=== PATIENT | male | born 1940 | race Caucasian/White ===

== ENCOUNTER → 2018-02-06 | Outpatient (CLI) | payer MEDICARE ==
[~2018-02-06] MED LIST: AMLO5 PO; ATOR40TA16 PO; CLOB0.059 TOPICAL; DESO0.0560 TOPICAL; ECASA81 PO; LABE100T2 PO; LATA0.002 EACH EYE; LOSA25TA PO; OXYC1CAP PO; VITA3000 PO; [UNRECOGNIZED DRUG - CODE] SL
[2018-02-06 12:31] LABS: AUTOMATED NEUTROPHIL # 4.9 TH/MM3 (1.8-7.7); BASOPHIL % 0.4 % (0.0-2.0); EOSINOPHIL # 0.5 TH/MM3 (0-0.4); EOSINOPHIL % 6.7 % (0.0-4.0); HEMATOCRIT 41.6 % (39.0-51.0); LYMPH % 16.2 % (9.0-44.0); LYMPHOCYTE # 1.2 TH/MM3 (1.0-4.8); MEAN CORPUSCULAR HEMOGLOBIN 31.3 PG (27.0-34.0); MEAN CORPUSCULAR HGB CONC 33.6 % (32.0-36.0); MEAN PLATELET VOLUME 9.6 FL (7.0-11.0); MONOCYTE # 0.9 TH/MM3 (0-0.9); NEUT % 64.7 % (16.0-70.0); PLATELET COUNT 228 TH/MM3 (150-450); RED BLOOD COUNT 4.47 MIL/MM3 (4.50-5.90); RED CELL DISTRIBUTION WIDTH 14.6 % (11.6-17.2); WHITE BLOOD COUNT 7.5 TH/MM3 (4.0-11.0)
--- NOTE | 2018-02-06 12:37 | RADRPT ---
EXAM DATE/TIME: 02/06/2018 12:11 [place] COMPARISON: No previous studies available for comparison. INDICATIONS : Evaluate for pneumonia, pneumothorax or communicable disease. Pre op left carotid. MEDICAL HISTORY : None. SURGICAL HISTORY : None. ENCOUNTER: Initial ACUITY: 1 day PAIN SCORE: 0/10 LOCATION: Bilateral chest FINDINGS: PA and lateral views of the chest demonstrate the lungs to be symmetrically aerated without evidence of mass, infiltrate or effusion. The cardiomediastinal contours are unremarkable. Osseous structure s are intact. CONCLUSION: 1. No active disease. Mild kyphosis. Justyn Figueredo MD on February 06, 2018 at 12:34 Board Certified Radiologist. This report was verified electronically.
[2018-02-06 12:38] LABS: BACTERIA, URINE RARE /hpf; BILIRUBIN, URINE NEG (NEG); BLOOD, URINE NEG (NEG); GLUCOSE,URINE NEG (NEG); HYALINE CAST, URINE 3 /lpf (RARE); KETONE, URINE NEG (NEG); NITRITE,URINE NEG (NEG); URINE COLOR YELLOW (YELLW/STRAW); URINE LEUKOCYTE ESTERASE NEG (NEG)
[2018-02-06 12:42] LABS: PROTHROMBIN TIME - PATIENT 10.4 SEC (9.8-11.6)
[2018-02-06 13:00] LABS: BICARBONATE 31.1 MEQ/L (21.0-32.0); CALCIUM 8.9 MG/DL (8.5-10.1); CREATININE 1.74 MG/DL (0.60-1.30)
--- NOTE | 2018-02-07 13:42 | EKG ---
Date Performed: 02/06/2018 Time Performed: 11:28:54 PTAGE: 77 years EKG: Sinus rhythm RIGHT BUNDLE BRANCH BLOCK ABNORMAL ECG NO PREVIOUS TRACING DOCTOR: Margarita Britt Interpretating Date/Time 02/07/2018 13:39:44
== END ==
LOC: CPRE 10:54
PROVIDERS: ATTEND Surgery
DX: Z01.812 Encounter for preprocedural laboratory examination (principal); Z01.811 Encounter for preprocedural respiratory examination; Z01.810 Encounter for preprocedural cardiovascular examination; I77.9 Disorder of arteries and arterioles, unspecified; I45.10 Unspecified right bundle-branch block
CPT/HCPCS: 36415; 71046; 80048; 81001; 85025; 85610; 85730; 93005

== ENCOUNTER 2018-02-12 10:00 | Inpatient (IN) | payer MEDICARE ==
[~2018-02-12] VITALS: Ht 172.7 cm; Wt 73.0 kg
[~2018-02-12 10:00] MED LIST changes: -OXYC1CAP PO
[2018-02-12] MEDS ORDERED: GLYCOPYRROLATE 1 MG/5 ML SYRINGE IV PUSH ONE (12:00)
[2018-02-12] MEDS ORDERED: PHENYLEPH/NS 1000 MCG/10 ML SYR IV ONE (12:00)
[2018-02-12] MEDS ORDERED: NORMOSOL R INJ 1,000 ML IV ONE (12:00)
[2018-02-12] MEDS ORDERED: ceFAZolin INJ 1,000 MG VIAL IV ONE (12:00)
[2018-02-12] MEDS ORDERED: SODIUM CHLORIDE 0.9% 20 ML VIAL IV ONE (12:00)
[2018-02-12] MEDS ORDERED: ROCURONIUM INJ 50 MG/5 ML SYRINGE IV PUSH ONE (12:00)
[2018-02-12] MEDS ORDERED: SODIUM CHLORID 0.9% 500 ML INJ 500 ML IV ONE (12:00)
[2018-02-12] MEDS ORDERED: PROPOFOL 200 MG/20 ML AMP IV ONE (12:00)
[2018-02-12] MEDS ORDERED: LABETALOL HCL 100 MG/20 ML VIAL IV ONE (12:00)
[2018-02-12] MEDS ORDERED: PHENYLEPHRINE HCL 10 MG/ML VIAL IV ONE (12:00)
[2018-02-12] MEDS ORDERED: LIDOCAINE HCL 1% PF 5 ML SYRINGE OTHER ONE (12:00)
[2018-02-12] MEDS ORDERED: DEXAMETHASONE SOD PHOS 4 MG/ML VIAL IV ONE (12:00)
[2018-02-12] MEDS ORDERED: ONDANSETRON HCL 4 MG/2 ML VIAL IV ONE (12:00)
[2018-02-12] MEDS ORDERED: NEOSTIGMINE 5 MG/5 ML SYRINGE IV PUSH ONE (12:00)
[2018-02-12] MEDS ORDERED: POVIDONE IODINE 5% (ANTISEPSIS KIT) 4 APPLICATIONS EACH NARE PRN (12:15)
[2018-02-12] MEDS ORDERED: CHLORHEXIDINE GLUCONATE 2 % 1 PACK (2 CLOTHS) TOPICAL PRN (12:15)
[2018-02-12] MEDS ORDERED: METOPROLOL TARTRATE 25 MG TAB PO PRN (12:15)
[2018-02-12] MEDS ORDERED: LACTATED RINGER'S 1000 ML IV PRN (12:15)
[2018-02-12] MEDS ORDERED: SODIUM CHLORID 0.9% 500 ML IV PRN (12:15)
--- NOTE | 2018-02-12 12:48 | HHI.HP ---
History of Present Illness Chief Complaint: Asymptomatic LEFT carotid stenosis History of Present Illness 77 yo male with asymptomatic L carotid stenosis, by duplex and confirmed on CTA. Presents for LEFT CEA. No recent changes in medical condition that would preclude OR Past/Family/Social History Past Medical History HTN carotid stenosis DM prostate CA Past Surgical History cleft lip hernia Social History nonsmoker Family History NC Home Medications Reported Medications Cyanocobalamin (Vitamin B-12) (Vitamin B-12) 3,000 Mcg Lozenge, 3000 MCG SL DAILY for Nutritional Supplement 02/06/18 Cholecalciferol (Vitamin D3) 3,000 Unit Tab, 3000 UNITS PO DAILY for Nutritional Supplement, #1 BOTTLE 0 Refills 02/06/18 Clobetasol Propionate (Clobetasol Propionate) 0.05 % Solution, 2 ML TOPICAL BID for Rash 02/06/18 Desonide Topical (Desonide Topical) 0.05% Cream, 1 APPLIC TOPICAL BID for Rash, GM 0 Refills RASH PSORIASIS ON ELBOW 02/06/18 Atorvastatin (Atorvastatin) 40 Mg Tab, 40 MG PO HS for Cholesterol Management, # 30 TAB 0 Refills 02/06/18 Losartan (Losartan) 25 Mg Tab, 25 MG PO HS for Blood Pressure Management, #30 TAB 0 Refills 02/06/18 Latanoprost Opth Drops (Latanoprost Opth Drops) 0.005% Drops, 1 DROP EACH EYE HS for Glaucoma, #2.5 ML 0 Refills Refrigerate until opened. 02/06/18 Amlodipine (Norvasc) 5 Mg Tab, 5 MG PO DAILY for Blood Pressure Management, #30 TAB 0 Refills 02/06/18 Labetalol (Labetalol) 100 Mg Tab, 50 MG PO BID for Blood Pressure Management, TAB 0 Refills 02/06/[address] (Aspirin DR) 81 Mg Tabdr, 81 MG PO BID, TAB 0 Refills 02/06/18 Coded Allergies: No Known Allergies (Unverified , 02/06/18) Review of Systems Constitutional: DENIES: Diaphoretic episodes, Fatigue, Fever, Weight gain, Weight loss, Chills, Dizziness, Change in appetite, Night Sweats Cardiovascular: DENIES: Chest pain, Palpitations, Syncope, Dyspnea on Exertion , PND, Lower Extremity Edema, Orthopnea, Claudication Physical Exam Vitals/I&O Date Time Temp Pulse Resp B/P (MAP) Pulse Ox O2 Delivery O2 Flow Rate FiO2 4/10/18 12:15 97.0 79 20 162/72 (102) 98 Neuro: alert, oriented, no distress HEENT: NC/AT Neck: no JVD Heart: reg rate Lungs: clear B Abdomen: soft, NT Vascular: palpable UE pulses Extremities: no C/C/E Hct 42 plt 228 cr 1.7 INR 1.0 CTA and duplex reviewed Caprini VTE Risk Assessment Caprini VTE Risk Assessment: No/Low Risk (score <= 1) Caprini Risk Assessment Model Point Value = 1 Point Value = 2 Point Value = 3 Point Value = 5 Age 41-60 Minor surgery BMI > 25 kg/m2 Swollen legs Varicose veins or History of unexplained or recurrent spontaneous Oral contraceptives or hormone replacement Sepsis (< 1 month) Serious lung disease, including pneumonia (< 1 month) Abnormal pulmonary function Acute myocardial infarction Congestive heart failure (< 1 month) History of inflammatory bowel disease Medical patient at bed rest Age 61-74 Arthroscopic surgery Major open surgery (> 45 min) Laparoscopic surgery (> 45 min) Malignancy Confined to bed (> 72 hours) Immobilizing plaster cast Central venous access Age >= 75 History of VTE Family history of VTE Factor V Leiden Prothrombin [id number] Lupus anticoagulant Anticardiolipin antibodies Elevated serum homocysteine Heparin-induced thrombocytopenia Other congenital or acquired thrombophilia Stroke (< 1 month) Elective arthroplasty Hip, pelvis, or leg fracture Acute spinal cord injury (< 1 month) Prophylaxis Regimen Total Risk Factor Score Risk Level Prophylaxis Regimen 0-1 Low Early ambulation 2 Moderate Order ONE of the following: *Sequential Compression Device (SCD) *Heparin 5000 units SQ BID 3-4 Higher Order ONE of the following medications: *Heparin 5000 units SQ TID *Enoxaparin/Lovenox 40 mg SQ daily (WT < 150 kg, CrCl > 30 mL/min) *Enoxaparin/Lovenox 30 mg SQ daily (WT < 150 kg, CrCl > 10-29 mL/min) *Enoxaparin/Lovenox 30 mg SQ BID (WT < 150 kg, CrCl > 30 mL/min) AND/OR *Sequential Compression Device (SCD) 5 or more Highest Order ONE of the following medications: *Heparin 5000 units SQ TID (Preferred with Epidurals) *Enoxaparin/Lovenox 40 mg SQ daily (WT < 150 kg, CrCl > 30 mL/min) *Enoxaparin/Lovenox 30 mg SQ daily (WT < 150 kg, CrCl > 10-29 mL/min) *Enoxaparin/Lovenox 30 mg SQ BID (WT < 150 kg, CrCl > 30 mL/min) AND *Sequential Compression Device (SCD) Assessment and Plan Plan L CEA POA to CVICU Discharge Planning Likely home tomorrow (POD#1) Family [phone] Marlo Morel MD Feb 12, 2018 12:48
[2018-02-12] MEDS ORDERED: HEPARIN-NS/PF INJ 500 ML ONE (13:34)
[2018-02-12] MEDS ORDERED: THROMBIN (TOPICAL) 20,000 UNIT SPRAY KIT ONE (13:34)
[2018-02-12] MEDS ORDERED: BUPIVACAINE HCL PF 0.5% 30 ML VIAL ONE (13:34)
[2018-02-12] MEDS ORDERED: HEPARIN SODIUM - IV 10,000 UNITS/10 ML VIAL ONE (13:34)
[2018-02-12] MEDS ORDERED: PROTAMINE SULFATE 50 MG/5 ML VIAL ONE (13:34)
[2018-02-12] MEDS ORDERED: ceFAZolin INJ 1,000 MG VIAL ONE (15:06)
[2018-02-12] MEDS ORDERED: SUGAMMADEX SODIUM 200 MG/2 ML VIAL IV PUSH ONE (15:11)
[2018-02-12] MEDS ORDERED: fentaNYL CITRATE 250 MCG/5 ML AMP ONE (15:11)
[2018-02-12] MEDS ORDERED: ACETAMINOPHEN 1000 MG/100 ML 100 ML IV ONE (15:11)
[2018-02-12] MEDS ORDERED: LACTULOSE SYRUP 20 GM/30 ML CUP PO PRN (15:45)
[2018-02-12] MEDS ORDERED: HYDROmorphone HCL 2 MG TAB PO PRN (15:45)
[2018-02-12] MEDS ORDERED: SENNOSIDES 8.6 MG TAB PO PRN (15:45)
[2018-02-12] MEDS ORDERED: hydrALAZINE HCL 20 MG/ML VIAL IV PUSH PRN (15:45)
[2018-02-12] MEDS ORDERED: BISACODYL 10 MG SUPP RECTAL PRN (15:45)
[2018-02-12] MEDS ORDERED: MORPHINE SULFATE 4 MG/ML INJ IV PUSH PRN (15:45)
[2018-02-12] MEDS ORDERED: MAGNESIUM HYDROXIDE SUSP 30 ML CUP PO PRN (15:45)
--- NOTE | 2018-02-12 15:45 | HHI.PR ---
cc: Marlo Morel MD Immediate Post Op Note Procedure Date: Feb 12, 2018 Pre Op Diagnosis: Asymptomatic high grade L carotid stenosis Post Op Diagnosis: Asymptomatic high grade L carotid stenosis Surgeon: Marlo Morel In Store Banker(s): Radha Lau Procedure: L CEA Findings: high grade, friable stenosis Additional Information: awoke neuro intact Complications: none Specimen(s) removed: plaque not for pathology Estimated blood loss: 100mL Anesthesia: General Drains: None Fluids: 1200mL IVF Urinary Output (mLs): 200 Patient to: CVICU Patient Condition: Good Implant/Devices: SEE IMPLANT LOG (if applicable) Date/Time of Procedure: SEE SURGICAL CARE RECORD Marlo Morel MD Feb 12, 2018 15:45
[2018-02-12 16:00] VITALS: PULSE 75
[2018-02-12 17:18] LABS: BASOPHIL % 0.2 % (0.0-2.0); EOSINOPHIL # 0.2 TH/MM3 (0-0.4); EOSINOPHIL % 1.9 % (0.0-4.0); HEMATOCRIT 40.2 % (39.0-51.0); HEMOGLOBIN 13.5 GM/DL (13.0-17.0); LYMPH % 7.1 % (9.0-44.0); LYMPHOCYTE # 0.8 TH/MM3 (1.0-4.8); MEAN CELL VOLUME 92.5 FL (80.0-100.0); MEAN CORPUSCULAR HGB CONC 33.5 % (32.0-36.0); MONO % 4.2 % (0.0-8.0); MONOCYTE # 0.5 TH/MM3 (0-0.9); NEUT % 86.6 % (16.0-70.0); PLATELET COUNT 195 TH/MM3 (150-450); RED BLOOD COUNT 4.34 MIL/MM3 (4.50-5.90); RED CELL DISTRIBUTION WIDTH 14.5 % (11.6-17.2); WHITE BLOOD COUNT 11.5 TH/MM3 (4.0-11.0)
--- NOTE | 2018-02-12 17:35 | MB ---
cc: Megan Orozco MD DATE: 02/12/2018 HISTORY OF PRESENT ILLNESS: The patient is a 77-year-old male with a past medical history of hypertension, hyperlipidemia, left carotid stenosis, active smoker who underwent left carotid endarterectomy today by Dr. Morel. Critical care medicine was consulted for critical care management. When seen in CV ICU, the patient is awake, alert, lying in bed in no acute respiratory distress. He denies any chest pain, shortness of breath or any GI symptoms. In addition, he denies any orthopnea, PND or edema of lower extremities. Postop, the patient has been hypertensive with a systolic blood pressure in the 60s. PAST MEDICAL HISTORY: Significant for hypertension, left carotid stenosis, prostate cancer. PAST SURGICAL HISTORY: Previous hernia, previous cleft lip. SOCIAL HISTORY: The patient smokes 1 pack of cigarettes a day. Occasional drinker. CURRENT MEDICATIONS: 1. Norvasc. 2. Pepcid. 3. Lipitor. 4. Cozaar. ALLERGIES: NO KNOWN DRUG ALLERGIES. FAMILY HISTORY: Noncontributory to present illness. REVIEW OF SYSTEMS: As per HPI. Rest of review of system are unremarkable. PHYSICAL EXAMINATION: GENERAL: A 77-year-old male lying in bed in no acute respiratory distress. VITAL SIGNS: Afebrile with a pulse of 76, blood pressure 172/59, saturation 99%. HEENT: Atraumatic, normocephalic. Pupils are equal, round, reactive to light and accommodation. Extraocular muscles are intact. Conjunctivae pink. Nonicteric sclerae. Oral mucosa within normal. NECK: Supple. No JVD, adenopathy or thyromegaly. Trachea is midline. Left carotid endarterectomy noted. HEART: Regular rate and rhythm. Normal S1, S2. No murmurs, rubs or gallops noted. LUNGS: Bilateral equal air entry. No rales or wheezing. ABDOMEN: Soft, nontender. No distention. Positive bowel sounds. EXTREMITIES: No cyanosis, clubbing, or edema. NEUROLOGIC: No focal sensory deficit. LABORATORY DATA: None available. IMPRESSION: 1. High grade left carotid stenosis, status post left carotid endarterectomy. 2. Hypertension. 3. Active tobacco use. 4. Hyperlipidemia. 5. History of prostate carcinoma. RECOMMENDATIONS: 1. Monitor neuro status closely and avoid any sedatives. 2. Oxygen p.r.n. to maintain sats above 92%. 3. Bronchodilators in the form of DuoNeb q.6 hours plus q.2 hours p.r.n. for shortness of breath. 4. Continue with antihypertensive medications. Monitor heart rate and blood pressure closely and maintain MAP greater than 65 mmHg. He is on Norvasc 5 mg daily 5. Cozaar 25 mg at bedtime and hydralazine 10 mg IV p.r.n. for systolic blood pressure greater than 170. 6. Monitor renal function, I's and O's and electrolyte replacement as needed. 7. The patient to start on heart healthy diet per vascular surgery. In addition, he is on Pepcid 20 mg b.i.d. 8. Monitor for signs of infection which include fever and WBC. Pearl culture if spikes a fever. 9. Sliding scale insulin if needed for glycemic control. 10. Continue with aspirin and Lipitor as ordered. 11. Gastrointestinal prophylaxis with Pepcid and DVT prophylaxis with SCDs and in addition, the patient was placed on Lovenox 40 mg subcutaneous daily. 12. We will check basic labs which include CBC and BMP. 13. Further recommendations will be based on hospital course. MD DOLORES Hardwick/MARLEN , 04:59 PM , 05:34 PM
--- NOTE | 2018-02-12 17:44 | MP ---
cc: Marlo Morel MD DATE OF OPERATION: 02/12/18 PREOPERATIVE DIAGNOSIS: High-grade left carotid stenosis, asymptomatic. POSTOPERATIVE DIAGNOSIS: High-grade left carotid stenosis, asymptomatic. PROCEDURE PERFORMED: Left carotid endarterectomy. ATTENDING SURGEON: Marlo Morel MD [employer] SURGEONS: Marlo Mckeon; CLINTON Mehta, PA/Rn Emergency ANESTHESIA: General. INDICATION: Mr. Whittington is a 77-year-old gentleman with greater than 90% left carotid stenosis and 50-60% right carotid stenosis. He is taken to the operating room for prophylactic carotid endarterectomy. DESCRIPTION OF PROCEDURE: Informed consent was obtained from the patient. He was taken to the operating room and placed supine on the operating room table. An appropriate timeout was taken to ensure the patient's identity, operative site and planned procedure. The administration of 2 grams of Ancef was initiated prior to skin incision and will be discontinued after a single preoperative dose. Everyone in the room agreed with timeout and we proceeded. His left neck was prepped and draped. An incision made along the anterior border of sternocleidomastoid and carried down through subcutaneous tissue with electrocautery. The jugular vein was retracted laterally. The facial vein was divided between 3-0 silk ties. The common carotid was identified and dissected free and encircled with a vessel loop. The carotid bifurcation, external carotid artery and internal carotid artery were all dissected free. The patient had an ansa cervicalis nerve branch that was obstructing the carotid, and this was carefully mobilized and retracted gently cephalad. The patient was systemically heparinized and ACT was confirmed to be greater than 250. Distal, then proximal control of the internal and common carotid arteries respectively were obtained with profunda clamps and the external was controlled with a profunda clamp. A longitudinal arteriotomy was made starting from the common carotid artery extending up to the internal carotid artery, and the carotid artery was endarterectomized. Reasonable endpoints proximally and distally were encountered. The endarterectomized artery was irrigated and a bovine pericardial patch was sewn on using running 5-0 Prolene suture. At the completion, it was flushed and noted to be hemostatic. The clamps were released in conjunction with our anesthesia colleagues. There were nice Doppler signals in the ICA and ECA. Throughout the entire clamping and unclamping, there were no neurological changes by EEG monitoring. The heparin was reversed with protamine. The wound was irrigated and made hemostatic, infiltrated with Marcaine and closed with 2-0 Polysorb, 3-0 Polysorb and 4-0 Monocryl. The sponge and needle counts were correct at the end of the case. I was present and scrubbed for the entire procedure. At the conclusion of the case, the patient was awoken from anesthesia and moved all extremities without difficulty. MD SAL Rojo/TEZ , 05:05 PM , 05:43 PM [place]
[2018-02-12] MEDS ORDERED: PILL SPLITTER OTHER PRN (17:45)
[2018-02-12 18:03] LABS: BICARBONATE 25.6 MEQ/L (21.0-32.0); CALCIUM 8.3 MG/DL (8.5-10.1); CREATININE 1.63 MG/DL (0.60-1.30); MAGNESIUM 2.1 MG/DL (1.5-2.5); PHOSPHORUS 2.8 MG/DL (2.5-4.9)
[2018-02-12 19:00] VITALS: BP_SYST 133; BP_SYST 143; BP_DIAS 54; BP_DIAS 60; PULSE 82; RESP 18; TEMP 97.8; O2SAT 98
[2018-02-12] MEDS: FLUOCINOLONE ACETONIDE 0.01% CR 15 GM TUBE TOPICAL SCH (21:00)
[2018-02-12] MEDS ORDERED: LATANOPROST 0.005% OPHT SOLN 2.5 ML BTL EACH EYE SCH (21:00)
[2018-02-12] MEDS ORDERED: CLOBETASOL PROPIONATE TOPICAL SCH (21:00)
[2018-02-12] MEDS ORDERED: ATORVASTATIN 40 MG TAB PO SCH (21:00)
[2018-02-12] MEDS ORDERED: LOSARTAN 25 MG TAB PO SCH (21:00)
[2018-02-12] MEDS ORDERED: DESONIDE TOPICAL SCH (21:00)
[2018-02-12] MEDS: BETAMETHASONE DIPROPIONATE 0.05% CREAM 15 GM TOPICAL SCH (21:23)
[2018-02-12] MEDS: DOCUSATE SODIUM 50 MG/SENNA 8.6 MG TAB PO SCH (21:24)
[2018-02-12] MEDS: ASPIRIN EC 81 MG TABEC PO SCH (21:24)
[2018-02-12] MEDS: FAMOTIDINE 20 MG TAB PO SCH (21:24)
[2018-02-12 21:51] VITALS: O2SAT 99
[2018-02-12 23:00] VITALS: BP_SYST 136; BP_SYST 142; BP_DIAS 47; BP_DIAS 65; PULSE 74; RESP 18; TEMP 98; O2SAT 100
[2018-02-13 03:00] VITALS: BP_SYST 143; BP_SYST 156; BP_DIAS 50; BP_DIAS 65; PULSE 79; RESP 18; TEMP 98.2; O2SAT 99
[2018-02-13 05:07] LABS: HEMATOCRIT 39.2 % (39.0-51.0); HEMOGLOBIN 13.1 GM/DL (13.0-17.0); MEAN CELL VOLUME 91.9 FL (80.0-100.0); MEAN CORPUSCULAR HEMOGLOBIN 30.7 PG (27.0-34.0); MEAN CORPUSCULAR HGB CONC 33.4 % (32.0-36.0); MEAN PLATELET VOLUME 9.2 FL (7.0-11.0); PLATELET COUNT 213 TH/MM3 (150-450); RED BLOOD COUNT 4.27 MIL/MM3 (4.50-5.90); RED CELL DISTRIBUTION WIDTH 14.7 % (11.6-17.2); WHITE BLOOD COUNT 11.6 TH/MM3 (4.0-11.0)
[2018-02-13 05:39] LABS: CALCIUM 8.2 MG/DL (8.5-10.1); CREATININE 1.55 MG/DL (0.60-1.30)
[2018-02-13 07:00] VITALS: PULSE 72
--- NOTE | 2018-02-13 07:31 | PD.VS.PN ---
Subjective POD #: 1 Procedure(s): L CEA Subjective/Hospital Course Looks great; pain controlled no swallowing difficulty voided since Wesley out Objective Vitals/I&O Date Time Temp Pulse Resp B/P (MAP) Pulse Ox O2 Delivery O2 Flow Rate FiO2 02/13/18 07:00 72 02/13/18 03:00 98.2 79 18 143/65 (91) 99 156/50 (85) 02/13/18 03:00 79 02/12/18 23:00 98.0 74 18 136/65 (88) 100 142/47 (78) 02/12/18 23:00 74 02/12/18 21:51 99 Nasal Cannula 2.00 02/12/18 19:00 97.8 82 18 133/60 (84) 98 143/54 (83) 02/12/18 19:00 82 02/12/18 16:00 75 02/12/18 12:15 97.0 79 20 162/72 (102) 98 02/13/18 02/13/18 02/13/18 07:00 15:00 23:00 Intake Total 240 ml Output Total 875 ml Balance -635 ml Exam: L neck incision ok neuro intact Laboratory Laboratory Tests Test 02/12/18 17:01 02/13/18 04:40 White Blood Count 11.5 11.6 Red Blood Count 4.34 4.27 Hemoglobin 13.5 13.1 Hematocrit 40.2 39.2 Mean Corpuscular Volume 92.5 91.9 Mean Corpuscular Hemoglobin 31.0 30.7 Mean Corpuscular Hemoglobin Concent 33.5 33.4 Red Cell Distribution Width 14.5 14.7 Platelet Count 195 213 Mean Platelet Volume 9.0 9.2 Neutrophils (%) (Auto) 86.6 Lymphocytes (%) (Auto) 7.1 Monocytes (%) (Auto) 4.2 Eosinophils (%) (Auto) 1.9 Basophils (%) (Auto) 0.2 Neutrophils # (Auto) 10.0 Lymphocytes # (Auto) 0.8 Monocytes # (Auto) 0.5 Eosinophils # (Auto) 0.2 Basophils # (Auto) 0.0 CBC Comment DIFF FINAL Differential Comment Blood Urea Nitrogen 26 26 Creatinine 1.63 1.55 Random Glucose 114 130 Calcium Level 8.3 8.2 Phosphorus Level 2.8 Magnesium Level 2.1 Sodium Level 140 139 Potassium Level 4.1 4.2 Chloride Level 107 105 Carbon Dioxide Level 25.6 25.0 Anion Gap 7 9 Estimat Glomerular Filtration Rate 41 44 Assessment and Plan Plan POD#1 s/p L CEA 1. normalize, d/c Wesley 2. D/C if ambulates and farhan breakfast Discharge Planning today Family [phone] Marlo Morel MD Feb 13, 2018 07:30
[2018-02-13 07:42] VITALS: O2SAT 97
[2018-02-13 07:47] VITALS: BP_SYST 139; BP_SYST 141; BP_DIAS 52; BP_DIAS 62; PULSE 83; RESP 18; TEMP 98; O2SAT 99
[2018-02-13] MEDS: ASPIRIN EC 81 MG TABEC PO SCH (08:42)
[2018-02-13] MEDS: FAMOTIDINE 20 MG TAB PO SCH (08:42)
[2018-02-13] MEDS: DOCUSATE SODIUM 50 MG/SENNA 8.6 MG TAB PO SCH (08:42)
[2018-02-13] MEDS: FLUOCINOLONE ACETONIDE 0.01% CR 15 GM TUBE TOPICAL SCH (08:43)
[2018-02-13] MEDS: BETAMETHASONE DIPROPIONATE 0.05% CREAM 15 GM TOPICAL SCH (08:43)
[2018-02-13] MEDS ORDERED: OXYC1CAP PO (08:44)
--- NOTE | 2018-02-13 08:59 | PD.VS.DC ---
Discharge Summary Admission Date: Feb 12, 2018 at 11:35 Discharge Date: Feb 13, 2018 Admission Diagnosis: (1) Carotid artery disease (2) S/P carotid endarterectomy Discharge Diagnosis: (1) S/P carotid endarterectomy ICD Codes: Z98.890 - Other specified postprocedural states (2) Carotid artery disease ICD Codes: I77.9 - Disorder of arteries and arterioles, unspecified Brief History from admission 77 yo male with asymptomatic L carotid stenosis, by duplex and confirmed on CTA. Presents for LEFT CEA. No recent changes in medical condition that would preclude OR Procedure(s): L CEA Significant Findings GENERAL: A&OX3,NAD, GCS15 SKIN: Warm and dry Left neck incision intact w/ surgical glue mild erythema at the incision line noted w/ no drainage Left side of neck w/ post operative swelling (proximal end of incision line) Pt w/ equal commercial collector strength CN 2-12 intact Pt w/o any neurological deficits Pt denied headache Pt able to swallow w/o difficulty Laboratory Tests Test 02/12/18 17:01 02/13/18 04:40 White Blood Count 11.5 TH/MM3 (4.0-11.0) 11.6 TH/MM3 (4.0-11.0) Red Blood Count 4.34 MIL/MM3 (4.50-5.90) 4.27 MIL/MM3 (4.50-5.90) Neutrophils (%) (Auto) 86.6 % (16.0-70.0) Lymphocytes (%) (Auto) 7.1 % (9.0-44.0) Neutrophils # (Auto) 10.0 TH/MM3 (1.8-7.7) Lymphocytes # (Auto) 0.8 TH/MM3 (1.0-4.8) Blood Urea Nitrogen 26 MG/DL (7-18) 26 MG/DL (7-18) Creatinine 1.63 MG/DL (0.60-1.30) 1.55 MG/DL (0.60-1.30) Random Glucose 114 MG/DL (74-106) 130 MG/DL (74-106) Calcium Level 8.3 MG/DL (8.5-10.1) 8.2 MG/DL (8.5-10.1) Estimat Glomerular Filtration Rate 41 ML/MIN (>89) 44 ML/MIN (>89) Hospital Course: 77 yo male with asymptomatic L carotid stenosis, by duplex and confirmed on CTA. Presents for LEFT CEA. No recent neurological deficits POD 1 Pt s/p L CEA Pt doing well w/o c/o headache or any neurological deficits Looks great Pain controlled No swallowing difficulty Pt voided since Wesley out CN 2-12 intact Pt with mild L sided neck swelling proximal end of incision line Arranged out pt f/u with a surveillance carotid duplex Allergies Coded Allergies Type Severity Reaction Last Updated Verified No Known Allergies 02/06/18 No 02/11/18 02/11/18 02/12/18 02/12/18 02/13/18 02/13/18 06:00 18:00 06:00 18:00 06:00 18:00 Intake Total 1550 ml 240 ml Output Total 820 ml 875 ml Balance 730 ml -635 ml Intake Oral 350 ml 240 ml Other 1200 ml Output Urine Total 720 ml 875 ml Estimated Blood Loss 100 ml # Bowel Movements 0 Laboratory Tests Test 02/12/18 17:01 02/13/18 04:40 White Blood Count 11.5 TH/MM3 11.6 TH/MM3 Red Blood Count 4.34 MIL/MM3 4.27 MIL/MM3 Hemoglobin 13.5 GM/DL 13.1 GM/DL Hematocrit 40.2 % 39.2 % Mean Corpuscular Volume 92.5 FL 91.9 FL Mean Corpuscular Hemoglobin 31.0 PG 30.7 PG Mean Corpuscular Hemoglobin Concent 33.5 % 33.4 % Red Cell Distribution Width 14.5 % 14.7 % Platelet Count 195 TH/MM3 213 TH/MM3 Mean Platelet Volume 9.0 FL 9.2 FL Neutrophils (%) (Auto) 86.6 % Lymphocytes (%) (Auto) 7.1 % Monocytes (%) (Auto) 4.2 % Eosinophils (%) (Auto) 1.9 % Basophils (%) (Auto) 0.2 % Neutrophils # (Auto) 10.0 TH/MM3 Lymphocytes # (Auto) 0.8 TH/MM3 Monocytes # (Auto) 0.5 TH/MM3 Eosinophils # (Auto) 0.2 TH/MM3 Basophils # (Auto) 0.0 TH/MM3 CBC Comment DIFF FINAL Differential Comment Blood Urea Nitrogen 26 MG/DL 26 MG/DL Creatinine 1.63 MG/DL 1.55 MG/DL Random Glucose 114 MG/DL 130 MG/DL Calcium Level 8.3 MG/DL 8.2 MG/DL Phosphorus Level 2.8 MG/DL Magnesium Level 2.1 MG/DL Sodium Level 140 MEQ/L 139 MEQ/L Potassium Level 4.1 MEQ/L 4.2 MEQ/L Chloride Level 107 MEQ/L 105 MEQ/L Carbon Dioxide Level 25.6 MEQ/L 25.0 MEQ/L Anion Gap 7 MEQ/L 9 MEQ/L Estimat Glomerular Filtration Rate 41 ML/MIN 44 ML/MIN Orders Procedure Category Date Status Time Type And Screen BBK 02/12/18 Complete 11:49 Lactated Ringer's MED 02/12/18 In Process 1000 Ml Inj (Lr 1000 M 12:15 Povidone Iod 5% MED 02/12/18 In Process Antisepsis Kit 12:15 Sodium Chlorid 0.9% MED 02/12/18 In Process 500 Ml Inj (Ns 500 M 12:15 Metoprolol Tartrate MED 02/12/18 In Process (Lopressor) 12:15 Chlorhexidine 2% MED 02/12/18 In Process Cloth (Chlorhexidine 12:15 Heparin Inj (Heparin MED 02/12/18 Complete Inj) 13:34 Bupivacaine Pf 0.5% MED 02/12/18 Complete Inj (Marcaine Pf 0.5 13:34 Thrombin Top [place] MED 02/12/18 Complete (Thrombin Top [place]) 13:34 Heparin-Ns/Pf Inj MED 02/12/18 Complete (Heparin-Ns/Pf Inj) 13:34 Protamine Sulfate Inj MED 02/12/18 Complete (Protamine Sulfate 13:34 Urinary Catheter NEAL 02/12/18 Complete Management 13:45 Cefazolin Inj (Ancef MED 02/12/18 Complete Inj) 15:06 Acetaminophen 1000 MED 02/12/18 Complete Mg/100 Ml (Ofirmev 10 15:11 Fentanyl Inj MED 02/12/18 Complete (Fentanyl Inj) 15:11 Sugammadex Inj MED 02/12/18 Complete ([place] Inj) 15:11 Am Admit Pre Op Care [facility] 02/12/18 Complete Remove Urinary NEAL 02/12/18 In Process Catheter 19:00 Admit To Inpatient ADMITTING 02/12/18 Transmitted Code Status CODE 02/12/18 Transmitted 15:39 Advertising Assistant / NEAL 02/12/18 Complete Telemetry 15:39 Activity Oob Ad Estephania NEAL 02/13/18 In Process 06:00 Activity Bed Rest NEAL 02/12/18 In Process 15:[address] Hines NEAL 02/12/18 In Process 15:39 Diet Heart Healthy DIET 02/12/18 Transmitted Dinner Basic Metabolic Panel LAB 02/13/18 Complete (Bmp) 06:00 Cbc No Diff, Includes LAB 02/13/18 Complete Plts 06:00 Consult Assistant Boys Track Coach CONS 02/12/18 Transmitted Famotidine (Pepcid) MED 02/12/18 In Process 21:00 Scd Bilateral/Knee NEAL 02/12/18 In Process High 15:39 Docusate Sodium-Senna MED 02/12/18 In Process (Andria-Colace) 21:00 Magnesium Hydroxide MED 02/12/18 In Process Liq (Milk Of Magnesi 15:45 Sennosides (Senokot) MED 02/12/18 In Process 15:45 Bisacodyl Supp MED 02/12/18 In Process (Dulcolax Supp) 15:45 Lactulose Liq MED 02/12/18 In Process (Lactulose Liq) 15:45 Inpatient ADMITTING 02/12/18 Transmitted Certification ^ Other Nursing Orders NEAL 02/12/18 In Process 15:39 Amlodipine (Norvasc) MED 02/13/18 In Process 09:00 Aspirin Ec (Ecotrin MED 02/12/18 In Process Ec) 21:00 Atorvastatin (Lipitor) MED 02/12/18 In Process 21:00 Cholecalciferol MED 02/13/18 In Process (Vitamin D3) 09:00 Latanoprost 0.005% MED 02/12/18 In Process Opth Soln (Xalatan 0. 21:00 Losartan (Cozaar) MED 02/12/18 In Process 21:00 Oxycodone (Roxicodone) MED 02/12/18 In Process 15:45 Hydromorphone MED 02/12/18 In Process (Dilaudid) 15:45 Morphine Inj MED 02/12/18 In Process (Morphine Inj) 15:45 Hydralazine Inj MED 02/12/18 In Process (Apresoline Inj) 15:45 Fentanyl Inj MED 02/12/18 Complete (Fentanyl Inj) 15:48 Fentanyl Inj MED 02/12/18 Complete (Fentanyl Inj) 15:48 Complete Blood Count LAB 02/12/18 Complete With Diff 16:37 Basic Metabolic Panel LAB 02/12/18 Complete (Bmp) 16:37 Magnesium (Mg) LAB 02/12/18 Complete 16:37 Phosphorus (Po4) LAB 02/12/18 Complete 16:37 (Hub Use Only)Inp Phy CONS 02/12/18 Transmitted Cons/Ref 16:38 Pill Splitter (Pill MED 02/12/18 In Process Splitter) 17:45 Enoxaparin Inj MED 02/13/18 In Process (Lovenox Inj) 15:00 Patient Own Medication MED 02/13/18 In Process 09:00 Betamethasone Dip MED 02/12/18 In Process 0.05% Cream (Diprosone 21:00 Fluocinolone 0.01% MED 02/12/18 In Process Cream (Synalar 0.01% 21:00 ^ Other Nursing Orders NEAL 02/13/18 In Process 07:29 Vital Signs Date Time Temp Pulse Resp B/P (MAP) Pulse Ox O2 Delivery O2 Flow Rate FiO2 02/13/18 07:47 98.0 83 18 141/62 (88) 99 139/52 (81) 02/13/18 07:46 97 Room Air 02/13/18 07:42 97 21 02/13/18 07:30 98 Nasal Cannula 1.00 02/13/18 07:00 72 02/13/18 03:00 98.2 79 18 143/65 (91) 99 156/50 (85) 02/13/18 03:00 79 02/12/18 23:00 98.0 74 18 136/65 (88) 100 142/47 (78) 02/12/18 23:00 74 02/12/18 21:51 99 Nasal Cannula 2.00 02/12/18 19:00 97.8 82 18 133/60 (84) 98 143/54 (83) 02/12/18 19:00 82 02/12/18 16:00 75 02/12/18 12:15 97.0 79 20 162/72 (102) 98 Discharge Condition: Good Discharge Disposition: Discharge Home Discharge Instructions: DIET You may resume your regular diet ACTIVITY No driving for 2W Activity as tolerated You may shower then pat dry the incision INCISION CARE Do not apply any creams or ointments to your incision as it may loosen the surgical glue Leave your incision open to air call the office to report an increase in swelling, redness, odor or drainage MEDICATIONS You may resume your daily home medications You were prescribed a narcotic pain medication- this can cause constipation- take with an over the counter stool softener You were prescribed a narcotic pain medication- this may cause drowsiness- no driving while taking this medication Any questions or concerns: Call [facility] [phone] Eleonora Luque Feb 13, 2018 08:59
[2018-02-13] MEDS ORDERED: CYANOCOBALAMIN 3000 MCG SL SCH ×2 (09:00)
[2018-02-13] MEDS ORDERED: amLODIPine BESYLATE 5 MG TAB PO SCH (09:00)
[2018-02-13] MEDS ORDERED: CHOLECALCIFEROL (VIT D3) 1000 UNIT TAB PO SCH (09:00)
[2018-02-13 11:00] VITALS: PULSE 75
[2018-02-13 11:10] VITALS: BP 154/58; PULSE 83; RESP 18; TEMP 98.6; O2SAT 99
[2018-02-13] MEDS ORDERED: ENOXAPARIN SODIUM 40 MG/0.4 ML SYRINGE SQ SCH (15:00)
== END 2018-02-13 12:33 | disposition home or self-care (01) | DRG 39 ==
LOC: HSDI 11:35 → HCVI 15:45
PROVIDERS: ADMIT Surgery; ATTEND Surgery
PROC: 03CL0ZZ Extirpation of Matter from Left Internal Carotid Artery, Open Approach (ICD-10-PCS; 2018-02-12)
PROC: 03CJ0ZZ Extirpation of Matter from Left Common Carotid Artery, Open Approach (ICD-10-PCS; principal; 2018-02-12 13:26)
DX: I65.23 Occlusion and stenosis of bilateral carotid arteries (principal); E11.9 Type 2 diabetes mellitus without complications; I10 Essential (primary) hypertension; E78.5 Hyperlipidemia, unspecified; F17.210 Nicotine dependence, cigarettes, uncomplicated; Z85.46 Personal history of malignant neoplasm of prostate; Z87.730 Personal history of (corrected) cleft lip and palate
CPT/HCPCS: 80048; 83735; 84100; 85025; 85027; 86850; 86900; 86901; C1768; J0131; J0690; J1100; J1644; J2370; J2405; J2710; J2720; J3010; J7040; J7120